=== PATIENT | male | born 1970 | race Caucasian/White ===

== ENCOUNTER 2024-03-13 20:31 | Emergency (ER) | payer BC, SELFPAY ==
[2024-03-13 20:35] VITALS: BP 136/79
--- NOTE | 2024-03-13 22:00 | ED.GENMED ---
History of Present Illness
General
Chief Complaint: Esophageal Problem
Source: patient
Exam Limitations: none
Time Seen by Provider: 03/13/24 21:39
History of Present Illness
History of Present Illness:
This is a 54 year old male that comes in with c/o food caught in the lower esophagus. States that he eat a piece of meat and it has been 2 hours. States that he has been spitting up his saliva. States that he tried to drink water and he just vomited
this back up. States that he had Glucagon in the past and it worked. Denies any fever, chills, chest pain, SOB, abd pain, nausea, diarrhea, headache, dizziness, urinary burning.
Past History
Past History
ED Past Medical History: GERD, Hypothyroidism and Other (Esophagus strictures)
ED Past Surgical History: Other (esophageal dilatation)
Social History
Tobacco: Former smoker
Alcohol: Occasional
Drug: None
Personal:
Living: with family
Employment: Employed
Review of Systems
Review of Systems
All Other Systems: ROS reviewed and negative except as documented in HPI and ROS
Constitutional: Reports no symptoms; Denies fever or chills
EENT: Reports no symptoms
Respiratory: Reports no symptoms; Denies cough or trouble breathing
Cardiac: Reports no symptoms; Denies chest pain
ABD/GI: Reports vomiting; Denies abdominal pain, nausea or diarrhea
: Reports no symptoms; Denies dysuria or urgency
Musculoskeletal: Reports no symptoms
Skin: Reports no symptoms
Neurological: Reports no symptoms; Denies dizzy or headache
Psychiatric: Reports no symptoms
Phy Exam
General Physical Exam
General Presentation: mild distress
General age: appears stated age
General Skin: warm and dry
General Habitus: normal
General Mental: alert
General Hydration: appears well hydrated
ENT Exam
ENT Exam: TM's normal, pharynx normal and neck supple
Eye Exam
Eye Exam: EOMI
Cardiovascular Exam
Cardiovascular Exam: regular rate/rhythm, no edema, no murmur and normal peripheral pulses
Pulmonary Exam
Pulmonary Exam: lungs clear, no respiratory distress, no rales, chest non tender, no crackles, no rhonchi, no wheezing and no cough
Gastrointestinal Exam
Gastrointestinal Exam: normal bowel sounds, non tender, soft, no organomegaly, no pulsatile mass and non distended
Musculoskeletal Exam
Musculoskeletal Exam: full ROM and no edema
Skin Exam
Skin Exam: normal color, warm/dry, no rash and no petechia
Psychiatric Exam
Psychiatric Exam: normal mood/affect
Course
Orders/Labs/Results
Orders:
Orders
03/13/24 21:40
Glucagon [GlucaGen] 1 mg IV NOW STA
03/13/24 21:59
Complete Blood Count/With Diff Urgent
Comprehensive Metabolic Panel Urgent
Vital Signs
Initial and Last Documented VS:
Initial Vital Signs
Temp Pulse Resp BP Pulse Ox
98 F 84 18 136/79 97
03/13/24 20:35 03/13/24 20:35 03/13/24 20:35 03/13/24 20:35 03/13/24 20:35
Last Documented Vital Signs
Temp Pulse Resp BP Pulse Ox
98 F 84 18 136/79 97
03/13/24 20:35 03/13/24 20:35 03/13/24 20:35 03/13/24 20:35 03/13/24 20:35
MDM/Problems Addressed
Differential Diagnosis Includes:
Food bolus. Esophageal strictures
MDM/Problems Addressed:
This is a 54 year old male that comes in with c/o food bolus. States that this started about 2 hours ago and this has happened to him in the past.
Will give Glucagon and recheck.
back into see patient. Patient states that the food bolus passed. Patient is drinking water. Patient had not even had any medication. Will discharge home.
Chronic conditions affecting care:
esophageal strictures
Acute Exacerbation and/or Progression of Chronic Illness:
Esophageal strictures.
*Pulse Oximetry
Patient hypoxic: no
*EKG
Interpreted by ED Provider?: NA
Rate: EKG- N/A
*Director Cardiology Interpretation
Rate: Director Cardiology- N/A
*Critical Care Note
Total Time (30-74mins, 75-104mins- exclusive of procedures): Not Applicable
ED Attending Note
-
Portions of this chart may have been created with voice recognition software.� Occasional wrong word or��sound alike� substitutions may have occurred due to the inherent limitations of voice recognition software.
Discharge Plan
Departure
Patient Disposition: Home (Routine Discharge)
Date of Disposition: 03/13/24
Time of Disposition: 22:16
Patient with high blood pressure during this ER visit?: Yes
Condition: Good
Covid-19: Not Applicable
Discharge Problem:
Food Bolus esophagus
Instructions: Food Obstruction, BLOOD PRESSURE
Prescriptions:
No Action
levothyroxine 150 MCG tablet
150 mcg PO DAILY
esomeprazole magnesium [Nexium 24HR] 20 MG tablet,delayed release (DR/EC)
1 cap PO DAILY
Referrals:
Xander Hadley MD [Family Provider] - Call in 1-3 days for appt
Activity Restrictions/Additional Instructions:
As discussed, since you feel that the bolus has passed, you will be discharge home. Please follow up with the GI specialist for further evaluation. IF YOU HAVE ANY OTHER CONCERNS PLEASE RETURN TO THE EMERGENCY ROOM.
Interventions
Interventions:
*Risk Screen - Suicide Last Done: 03/13/24 20:35
*General Assessment Last Done: 03/13/24 20:35
*Neglect/Abuse Screening Last Done: 03/13/24 20:35
ED- Fall Risk Assessment Last Done: 03/13/24 22:10
*ED COVID-19 Vaccine History Last Done: 03/13/24 20:35
CM-Llebee-Cvrodyfnqs Assessment Last Done: 03/13/24 22:10
ED-EENT Assessment Last Done: 03/13/24 22:10
Discharge Date and Time
Print Language: [id number]
[2024-03-13 22:30] VITALS: BP 110/74
== END 2024-03-13 22:30 | disposition home or self-care (01) ==
LOC: EMR 20:31
PROVIDERS: EMERGENCY PHYSICIAN Student in an Organized Health Care Education/Training Program; FAMILY PHYSICIAN Family Medicine
DX: T18.128A Food in esophagus causing other injury, initial encounter (principal); W44.F3XA Food entering into or through a natural orifice, initial encounter; Z87.891 Personal history of nicotine dependence; R03.0 Elevated blood-pressure reading, without diagnosis of hypertension
CPT/HCPCS: 99282

== ENCOUNTER → 2024-06-17 14:49 | Outpatient (REF) | payer BC, SELFPAY | LOC: DHSLP 14:49 | PROVIDERS: ATTENDING PHYSICIAN Internal Medicine Critical Care Medicine | DX: G47.33 Obstructive sleep apnea (adult) (pediatric) (principal); R06.83 Snoring | CPT/HCPCS: 95800 ==

== ENCOUNTER 2024-12-28 06:23 | Day surgery (SDC) | payer BC, SELFPAY | END 2024-12-28 15:03 | disposition home or self-care (01) | LOC: GI 06:23 | PROVIDERS: ATTENDING PHYSICIAN Specialist | DX: Z12.11 Encounter for screening for malignant neoplasm of colon (principal); K63.5 Polyp of colon; K55.20 Angiodysplasia of colon without hemorrhage; K57.30 Diverticulosis of large intestine without perforation or abscess without bleeding | CPT/HCPCS: 45385; 88305 ==